=== PATIENT | female | born 1950 | race Two or more races ===

== ENCOUNTER 2022-07-27 11:39 | Outpatient (CLI) | payer MEDICARE | END 2022-07-27 23:59 | disposition home or self-care (01) | LOC: LAB 11:39 | PROVIDERS: ATTEND Specialist | DX: Z01.812 Encounter for preprocedural laboratory examination (principal); Z20.822 Contact with and (suspected) exposure to COVID-19 | CPT/HCPCS: U0003; C9803 ==

== ENCOUNTER 2022-08-01 06:19 | Inpatient (IN) | payer MEDICARE ==
[2022-08-01] VITALS (7 sets, daily range): BP systolic 115–143; BP diastolic 60–87
[~2022-08-01] VITALS: Ht 144.8 cm; Wt 59.0 kg
[2022-08-01] MEDS ORDERED: MAGNESIUM HYDROXIDE 30 ML UDC PO PRN (07:00)
[2022-08-01] MEDS ORDERED: MAG HYDROX/AL HYDROX/SIMETH 30 ML UDC PO PRN (07:00)
[2022-08-01] MEDS ORDERED: diphenhydrAMINE HCL 25 MG CAPSULE PO PRN (07:00)
[2022-08-01] MEDS ORDERED: TRANEXAMIC ACID 3,000 MG in SODIUM CHLORIDE IRRIG SOLUTION 70 ML IR ONE (07:00)
[2022-08-01] MEDS ORDERED: MENTHOL/CETYLPYRD (CEPACOL) 1 LOZ LOZENGE PO PRN (07:00)
[2022-08-01] MEDS ORDERED: ONDANSETRON HCL/PF 4 MG/2 ML VIAL IV PRN (07:00)
--- NOTE | 2022-08-01 07:00 | NUR ---
DAY SURGERY RECEIVED PATIENT IN DAY SURGERY AT 0700, AMBULATORY,A/OX4, RESPIRATION EVEN AND UNLABORED ACCOMPANIED BY FAMILY MEMBER, RIGHT HAND IV SITE G 20 STARTED, PATIENT IS NPO SINCE LAST NIGHT.ALL CONSENTS GIVEN TO PATIENT IN FINNISH PER PATIENT AND FAMILY REQUEST, ALL CONSENTS SIGNED, SUGICAL CHECK LIST DONE.WAITING TO GO TO SURGERY.
[2022-08-01] MEDS ORDERED: CLONIDINE HCL 0.1 MG TABLET PO PRN (07:30)
[2022-08-01] MEDS ORDERED: POLYMYXIN B SULFATE 500,000 UNITS ONE (07:46)
[2022-08-01] MEDS ORDERED: BUPIVACAINE 0.5 % PF 150 MG/30 ML VIAL ONE ×2 (07:46→09:05)
--- NOTE | 2022-08-01 07:55 | NUR ---
DAY SURGERY BMP BLOOD DRAWING DONE , PRE MD ORDER
--- NOTE | 2022-08-01 08:30 | NUR ---
PATIENT TO OR AT THIS TIME.
[2022-08-01] MEDS: FAMOTIDINE (20 MG) 20 MG TABLET PO SCH (09:00)
[2022-08-01] MEDS: AMLODIPINE BESYLATE 5 MG TABLET PO SCH ×2 (09:00→16:42)
[2022-08-01] MEDS ORDERED: HYDROMORPHONE INJ 2 MG/ML DISP.SYRIN ONE (09:05)
[2022-08-01 09:14] LABS: CALCIUM, SERUM 9.7 mg/dL (8.5-10.1); POTASSIUM 3.8 mmol/L (3.5-5.1)
--- NOTE | 2022-08-01 12:00 | NUR ---
MS/DS RN NOTES PT ARRIVED TO UNIT AT 1130 VIA GURNEY FROM RECOVERY ROOM WITH RN KEMAR, RN CHRISTIAN VIA HER BED, S/P LEFT KNEE TOTAL ARTHROPLASTY BY DR YEN. PATIENT IS FOR OBSERVATION FOR ONE NIGHT PER MD ORDER. PATIENT WILL BE SEEN BY ADMITTING HOSPITALIST ASHTYN VILLARREAL. PATIENT IS A0X4, OCCITAN SPEAKER ONLY.PATIENT IS WITH DAUGHTER BRADLEY WHO IS TRANSLATING FOR HER. PATIENT WAS BROUGHT IN WITH 2LPM OXYGEN VIA NC BUT PATIENT IS TOLERATING ROOM AIR AT 97% WHEN BROUGHT TO THE ROOM. LEFT LEG IS COVERED WITH GILBERT BANDAGE AND ICE PACK, NO BLEEDING NOTED AND PATIENT DENIES PAIN. HAS IV ACCESS ON THE RIGHT HAND G#20 PATENT, FLUSHING WELL, STARTED LR @100 ML/HR ORDERED. VS SIGNS TAKEN AND WILL OBSERVE EVERY 15 MINS. WNL DURING THIS TIME. SAFETY MEASURES IN PLACE: BED LOCKED AND AT LOWEST POSITION, CALL LIGHT AND TRAY TABLE WITHIN REACH, BED ALARM ON AND SIDE RAILS 2X UP. WILL CONTINUE TO MONITOR.
[2022-08-01] MEDS: IV LR 1000 ML 1,000 ML IV PRN (13:50)
[2022-08-01] MEDS ORDERED: AMLO-212 PO (15:23)
[2022-08-01] MEDS: ANCEF 1 GM/50 ML D5W IV SCH ×2 (16:34)
[2022-08-01] MEDS: DOCUSATE SODIUM 100 MG CAPSULE PO SCH (16:42)
[2022-08-01] MEDS: oxyCODONE IR immediate release 5 MG PO PRN (18:40)
--- NOTE | 2022-08-01 18:45 | NUR ---
MS RN CLOSING NOTES PATIENT IS LYING IN BED WITH HOB ELEVATED, AOX4, NO SOB NOTED, NO S/SX OF ANY APPARENT DISTRESS. ON RA SATURATING AT 96%, BREATHING EVEN AND UNLABORED, PATIENT COMPLAINS OF 5/10 HEADACHE AND REPORTS THAT THE OPERATIVE LEG IS STARTING TO GIVE HER DISCOMFORT, GIVEN OXY IR ORDERED AT 1841. WILL ENDORSE TO THE DRIVER UTILITY WORKER NURSE TO MONITOR EFFECTIVENESS. OPERATIVE SITE NO NOTED BLEEDING. IV ACCESS AT RH 20G WITH LR RUNNING AT 100 ML/HR. ALL NEEDS ATTENDED AND DUE MEDS GIVEN. SAFETY MEASURES STILL IN PLACE: BED AT LOWEST POSITION, LOCKED, TRAY TABLE AND CALL LIGHT WITHIN REACH, 2X SIDE RAILS UP. WILL ENDORSE THE POC TO THE NIGHT NURSE.
--- NOTE | 2022-08-01 19:25 | NUR ---
MS RN OPENING NOTE RECEIVED PATIENT RESTING IN BED,WITH SON AT BED SIDE. PT A/O X 4, ICELANDIC SPEAKING. PT ABLE TO MAKE NEEDS KNOWN. NO ACUTE DISTRESS NOTED , NO C/O PAIN OR DISCOMFORT AT THIS TIME. PT HAS LEFT LEG INCISION. ON ROOM AIR, TOLERATING ROOM AIR WELL. SAFETY MEASURES IN PLACE: BED LOCKED IN LOWEST POSITION, SIDE RAILS UP X 2, CALL LIGHT WITHIN REACH. WILL CONTINUE TO MONITOR PT.
[2022-08-01] MEDS: HYDROMORPHONE 1 MG/1 ML DISP.SYRIN IM/IV/SC PRN (23:45)
[2022-08-02] MEDS: ANCEF 1 GM/50 ML D5W IV SCH ×2 (01:21)
[2022-08-02] MEDS: IV LR 1000 ML 1,000 ML IV PRN ×2 (01:22→16:23)
[2022-08-02 06:05] LABS: BASOPHILS % (AUTO) 0.2 % (0.0-2.0); HEMATOCRIT 29 % (33-45); HEMOGLOBIN 10.1 g/dL (11.5-14.8); LYMPHOCYTES # (AUTO) 1.6 K/uL (0.8-4.8); LYMPHOCYTES % (AUTO) 14.1 % (20.0-44.0); MEAN CORPUSCULAR HGB CONC 34 g/dl (31.0-36.0); MEAN CORPUSCULAR VOLUME 90 fL (82-100); MONOCYTES # (AUTO) 0.8 K/uL (0.1-1.30); MONOCYTES % (AUTO) 7.5 % (2.0-12.0); NEUTROPHILS # (AUTO) 8.7 K/uL (1.8-8.9); NEUTROPHILS % (AUTO) 78.2 % (43.0-81.0); PLATELET COUNT (AUTO) 263 K/uL (150-450); RED BLOOD CELL COUNT(AUTO) 3.26 MIL/uL (4.0-5.2); WHITE BLOOD COUNT (AUTO) 11.2 K/uL (4.3-11.0)
[2022-08-02 06:24] LABS: CALCIUM, SERUM 8.6 mg/dL (8.5-10.1); CREATININE 0.9 mg/dL (0.6-1.3); POTASSIUM 4.1 mmol/L (3.5-5.1)
--- NOTE | 2022-08-02 07:28 | NUR ---
MS RN CLOSING NOTE LEFT PATIENT STILL SLEEPING IN BED. PT A/O X4, NO SOB NOTED, NO S/SX OF ANY APPARENT DISTRESS. ON RA, BREATHING EVEN AND UNLABORED.NO COMPLAINT OF PAIN OR DISCOMFORT AT THIS TIME. IV ACCESS TO RIGHT HAND 20G WITH LR RUNNING AT 100 ML/HR. ALL NEEDS ATTENDED AND DUE MEDS GIVEN. SAFETY MEASURES IN PLACE: BED AT LOWEST POSITION, LOCKED, TRAY TABLE AND CALL LIGHT WITHIN REACH, SIDE RAILS UP X 2. WILL ENDORSE THE POC TO THE AM SHIFT NURSE.
--- NOTE | 2022-08-02 08:15 | NUR ---
RN OPENING NOTES RECEIVED PATIENT AWAKE IN BED, PT IS A/O X 4, NOR[place]GI[place] SPEAKING. PT ABLE TO MAKE NEEDS KNOWN. PATIENT ON ROOM AIR WITH NO SIGNS OF DISTRESS NOTED , NO C/O PAIN OR DISCOMFORT AT THIS TIME. PT HAS LEFT LEG INCISION, DRY, CLEAN AND INTACT. IV ACCESS ON RFA 20G WITH LR @ 100ML/HR. SAFETY MEASURES IN PLACE: BED LOCKED IN LOWEST POSITION, SIDE RAILS UP X 2, CALL LIGHT WITHIN REACH. WILL CONTINUE TO MONITOR PT.
[2022-08-02 08:32] VITALS: BP 129/73
[2022-08-02] MEDS ORDERED: ASPIRIN 325 MG TABLET PO SCH (09:00)
[2022-08-02] MEDS: DOCUSATE SODIUM 100 MG CAPSULE PO SCH ×2 (09:30→17:19)
[2022-08-02] MEDS: FAMOTIDINE (20 MG) 20 MG TABLET PO SCH (09:30)
[2022-08-02 09:35] LABS: IRON, SERUM 60 ug/dl (50-175); TOTAL IRON BINDING CAPACITY 206 ug/dl (250-450)
[2022-08-02] MEDS: AMLODIPINE BESYLATE 5 MG TABLET PO SCH ×2 (09:36→17:22)
[2022-08-02] MEDS: oxyCODONE IR immediate release 5 MG PO PRN ×2 (09:36→15:35)
[2022-08-02] MEDS: HYDROMORPHONE 1 MG/1 ML DISP.SYRIN IM/IV/SC PRN (16:31)
[2022-08-02] MEDS ORDERED: HYDROCODONE/APAP 10/325MG TABLET PO ONE (16:46)
[2022-08-02] MEDS ORDERED: oxyCODONE IR immediate release 5 MG PO PRN (17:00)
--- NOTE | 2022-08-02 18:59 | NUR ---
RN CLOSING NOTES PATIENT IN BED, SLEEPING. PATIENT IS A/O X4, ON ROOM AIR AND NO SOB NOTED, NO S/SX OF ANY DISTRESS AND BREATHING EVEN AND UNLABORED. NO PAIN OR DISCOMFORT AT THIS TIME. IV ACCESS ON RIGHT HAND 20G WITH LR RUNNING AT 100 ML/HR. ALL NEEDS ATTENDED AND MEDS GIVEN. SAFETY MEASURES IN PLACE: BED AT LOWEST POSITION, LOCKED, TABLE AND CALL LIGHT WITHIN REACH, SIDE RAILS UP X2. WILL ENDORSE TO NIGHT NURSE.
--- NOTE | 2022-08-02 19:30 | NUR ---
MS RN OPENING NOTE PATIENT AWAKE IN BED WITH FAMILY AT BEDSIDE, PT ALERT/ORIENTED X 4, BURKIN[place] SPEAKING, ABLE TO MAKE NEEDS KNOWN. PATIENT STABLE ON RA, NO S/S OF DISTRESS OR SOB NOTED, BREATHING EVEN AND UNLABORED. PATIENT DENIES PAIN AT THIS TIME. IV ACCESS ON RIGHT FOREARM #20G INTACT AND INFUSING L R@ 100 ML/HR. SAFETY MEASURES IN PLACE: CALL LIGHT WITHIN REACH, SIDE RAILS UP X 2, BED LOCKED IN LOWEST POSITION, BED ALARM ON. WILL CONTINUE TO MONITOR PATIENT Addendum: 08/02/22 at 2037 by MICHAELLE STORY RN PATIENT C/O LEFT LEG PAIN, WILL ADMINISTER PAIN MEDICATION ORDERED
[2022-08-02 20:00] VITALS: BP 185/94
[2022-08-02] MEDS: HYDROCODONE/APAP 10/325MG TABLET PO PRN (21:02)
[2022-08-02] MEDS: IV NS 0.9% 1,000 ML IV PRN (22:27)
--- NOTE | 2022-08-02 23:19 | NUR ---
MS RN NOTE REASSESSED PATIENT'S BP, STILL ELEVATED AFTER PAIN MEDICATION. BP NOW 166/83, HR: 77. CLONIDINE 0.1 MG PO GIVEN ORDERED. WILL CONTINUE TO MONITOR
[2022-08-03] MEDS: HYDROCODONE/APAP 10/325MG TABLET PO PRN ×3 (06:04→13:37)
--- NOTE | 2022-08-03 06:27 | NUR ---
MS RN NOTE SPOKE TO DR. ARROYO WITH ORDER FOR LABS CBC AND BMP. ORDERS CARRIED OUT
--- NOTE | 2022-08-03 06:41 | NUR ---
MS RN CLOSING NOTE PATIENT SLEEPING IN BED, PT ALERT/ORIENTED X 4, AZERI SPEAKING, ABLE TO MAKE NEEDS KNOWN. PATIENT STABLE ON RA, NO S/S OF DISTRESS OR SOB NOTED, BREATHING EVEN AND UNLABORED. PATIENT DENIES PAIN AT THIS TIME. IV ACCESS ON RIGHT WRIST #20G INTACT AND INFUSING NS @ 125 ML/HR. MEDICATIONS GIVEN ORDERED, PT NEEDS MET THROUGHOUT SHIFT. PATIENT ABLE TO USE BSC WITH ASSIST AND CANE. SAFETY MEASURES IN PLACE: CALL LIGHT WITHIN REACH, SIDE RAILS UP X 2, BED LOCKED IN LOWEST POSITION, BED ALARM ON. WILL ENDORSE TO DAYSHIFT NURSE FOR CONTINUITY OF CARE
[2022-08-03] MEDS: IV NS 0.9% 1,000 ML IV PRN (06:48)
--- NOTE | 2022-08-03 07:20 | NUR ---
ms rn received on bed, awake,alert,oriented x4,not in any form of distress, respirations even and unlabored,no sob noted, s/p left total knee arthroplasty, w/ dressing dry and intact, denies pain at this time,all needs attended.
[2022-08-03] MEDS ORDERED: RIVAROXABAN 10 MG TABLET PO SCH (08:00)
[2022-08-03 08:19] VITALS: BP 147/73
[2022-08-03] MEDS: RIVAROXABAN 10 MG TABLET PO SCH ×2 (09:00→09:31)
--- NOTE | 2022-08-03 09:00 | NUR ---
ms hurt breakfast served,due meds given,tolerated well.
[2022-08-03 09:15] LABS: CALCIUM, SERUM 8.7 mg/dL (8.5-10.1); CREATININE 0.9 mg/dL (0.6-1.3); POTASSIUM 3.2 mmol/L (3.5-5.1)
[2022-08-03 09:21] LABS: BASOPHILS # (AUTO) 0.1 K/uL (0.0-0.2); BASOPHILS % (AUTO) 1.3 % (0.0-2.0); EOSINOPHILS % (AUTO) 0.2 % (0.0-6.0); HEMATOCRIT 31 % (33-45); HEMOGLOBIN 10.5 g/dL (11.5-14.8); LYMPHOCYTES # (AUTO) 1.4 K/uL (0.8-4.8); LYMPHOCYTES % (AUTO) 18.4 % (20.0-44.0); MEAN CORPUSCULAR HGB CONC 34 g/dl (31.0-36.0); MEAN CORPUSCULAR VOLUME 91 fL (82-100); MONOCYTES # (AUTO) 0.7 K/uL (0.1-1.30); MONOCYTES % (AUTO) 9.3 % (2.0-12.0); NEUTROPHILS # (AUTO) 5.4 K/uL (1.8-8.9); NEUTROPHILS % (AUTO) 70.8 % (43.0-81.0); PLATELET COUNT (AUTO) 287 K/uL (150-450); RED BLOOD CELL COUNT(AUTO) 3.41 MIL/uL (4.0-5.2); WHITE BLOOD COUNT (AUTO) 7.6 K/uL (4.3-11.0)
[2022-08-03] MEDS: FAMOTIDINE (20 MG) 20 MG TABLET PO SCH (09:30)
[2022-08-03] MEDS: DOCUSATE SODIUM 100 MG CAPSULE PO SCH (09:30)
[2022-08-03 09:31] VITALS: BP 147/73
[2022-08-03] MEDS: AMLODIPINE BESYLATE 5 MG TABLET PO SCH (09:31)
--- NOTE | 2022-08-03 10:30 | NUR ---
ms rn was seen by pt, patient has pain, will do it again this pm, for discharge today home.
[2022-08-03] MEDS ORDERED: DOCU100C36 PO (10:53)
[2022-08-03] MEDS ORDERED: RIVA10TA PO (10:53)
--- NOTE | 2022-08-03 14:00 | NUR ---
ms rn was seen by pt,was tolerated.
--- NOTE | 2022-08-03 15:30 | NUR ---
ms yarn washer instructions given to daughter went home accompanied by daughter,all needs attended.
== END 2022-08-03 15:55 | disposition home health service (06) | DRG 470 ==
LOC: DS 06:19 → MED 13:00
PROVIDERS: ADMIT Nurse Practitioner Acute Care; ATTEND Nurse Practitioner Acute Care
PROC: 0SRD0J9 Replacement of Left Knee Joint with Synthetic Substitute, Cemented, Open Approach (ICD-10-PCS; principal; 2022-08-01)
DX: M17.12 Unilateral primary osteoarthritis, left knee (principal); E87.1 Hypo-osmolality and hyponatremia; N17.9 Acute kidney failure, unspecified; I10 Essential (primary) hypertension; Z96.651 Presence of right artificial knee joint; Z82.49 Family history of ischemic heart disease and other diseases of the circulatory system; E87.6 Hypokalemia; Z79.899 Other long term (current) drug therapy; D64.9 Anemia, unspecified; I27.20 Pulmonary hypertension, unspecified
CPT/HCPCS: 36415; 80048-TC; 83540-TC; 84484-TC; 85025-TC; 87081-TC; 93307-TC; 97110-TC; 97116-TC; 97530-TC; A4217; C1713; C1776; G0378; J0360; J0690; J1100; J1170; J1885; J2405; J2704; J3490; J7030; J7060; J7120